=== PATIENT | male | born 1995 | race Caucasian/White ===

== ENCOUNTER 2017-06-07 21:19 | Emergency (ER) | payer BC ==
[2017-06-07 21:22] VITALS: TEMP 36.7
[2017-06-07] MEDS ORDERED: AMOX875T PO (22:15)
[2017-06-07] MEDS ORDERED: HYDR-5688 PO (22:15)
[2017-06-07] MEDS ORDERED: NORCO 5/325MG HOME PACK PO ONE (22:15)
[2017-06-07] MEDS ORDERED: AMOXICIL/CLAVU 875MG HOME PACK PO ONE (22:15)
[2017-06-07 22:25] VITALS: BP 133/70; PULSE 91; O2SAT 95
--- NOTE | 2017-06-07 22:30 | EMERGENCY ROOM VISIT NOTE ---
History First contact with patient: 21:43 Chief Complaint: LACERATION/CUT (SUT/DERMABOND) Stated Complaint: CHIPPED FRONT TEETH AND TONGUE LACERATION Nursing Triage Summary: Patient was playing soccer, "took a head to the face". Patient denies LOC. Patient has two front teeth chipped. History of Present Illness The patient is a 22 year old male who presents to the Emergency Room with complaints of injury to his upper teeth and tongue that occurred about 45 minutes ago. The patient states that he was playing soccer today when he collided with another participant. The patient broke 2 of his teeth and suffered a laceration to his tongue. The patient did not lose consciousness and does not have other complaints. He is usually healthy and does not take blood thinners. He is not complaining of significant head or neck pain. He does not take blood thinners. He is reportedly up-to-date on his tetanus and rates his current discomfort a 7/10. Review of Systems More than 10 systems were reviewed and otherwise negative with the exception of history of present illness. Past Medical/Surgical History No chronic medical disease Family History No pertinent family history Social History Smoking Status: Never Smoker Occupation Status: [employer] student Current/Historical Medications Scheduled Amoxicillin & Pot Clavulanate (Augmentin 875-125 mg), 1 TAB PO BID Scheduled PRN Hydrocodone/Acetaminophen 5MG/325MG ([place] 5MG/325MG), 1 TABLET PO Q6 PRN for Pain Physical Exam Vital Signs Date Time Temp Pulse Resp B/P (MAP) Pulse Ox O2 Delivery O2 Flow Rate FiO2 4/4/18 21:22 36.7 97 18 136/80 96 Room Air Physical Exam VITALS: Vitals are noted on the nurse's note and reviewed by myself. Vital signs stable. GENERAL: Well-developed, well-nourished, white male, who is moderately uncomfortable on examination EARS: External ear normal. External auditory canals clear, tympanic membranes pearly ramey without erythema or effusion bilaterally. EYES: Pupils equal round and reactive to light and accommodation. Conjunctivae without injection, sclerae without icterus. Extraocular movements intact. NOSE: Patent, turbinates without inflammation or discharge. MOUTH: Mucous membranes moist. Tonsils are not enlarged. Pharynx without erythema, blood, or exudate. Uvula midline. Airway patent. The front upper incisors, #8 and #9 teeth are with horizontal fractures inferiorly. These teeth are not subluxed and appear stable. No obvious pulp exposure. There is a 2 cm C-shaped laceration to the distal left lateral aspect of the tongue that does gape. There is an additional 1 cm fairly linear laceration to the underside of the tongue. NECK: Supple without nuchal rigidity. No lymphadenopathy. No thyromegaly. Cervical spine is nontender. HEART: Regular rate and rhythm without murmurs gallops or rubs. LUNGS: Clear to auscultation bilaterally without wheezes, rales or rhonchi. No retractions or accessory muscle use. Medical Decision & Procedures Procedure Laceration repair. Patient elects to have their laceration repaired. Verbal consent was obtained to perform the procedure. There is an abundance of materials available for the procedure. Patient is not allergic to latex. Using sterile technique the wound was cleaned with Betadine. The area was sterilely draped. The wound was cleansed and irrigated. The wound was explored and there were no deep structures injured such as tendons, bone, or significant blood vessels. The tongue laceration was repaired using 1 simple interrupted 6- 0 vicryl suture with the wound edges being well approximated. Patient tolerated the procedure well without complications. Blood loss was negligible. ED Course Physical exam and history were performed. Nursing notes, EMR, and Medication List were personally reviewed. Patient appears to have suffered injury to his face while playing soccer tonight. He has 2 fractures of his upper incisors, as well as a tongue laceration. On examination the tongue laceration does not neatly fall into place due to the size. Because of this I did elect to place a single 6-0 Vicryl suture to tack the wound into a more anatomic position. The patient tolerated this well. I did speak with the patient's father regarding the injury , who is evidently a physician in the [place] area. The patient and family understand that we do not have maxillofacial surgery on [facility], and the patient will require their services regarding his dental injuries. We will provide him with information locally, however there is a chance he may go back home to [facility] for further care. This seems reasonable. I will give the patient a short course of Augmentin and Vicodin. He was otherwise invited back to the ER with any new, worsening, or concerning symptoms. The chart was completed utilizing Dragon Speech Voice Recognition Software. Grammatical errors, random word insertions, pronoun errors, and incomplete sentences are an occasional consequence of this system due to software limitations, ambient noise, and hardware issues. Any formal questions or concerns about the content, text, or information contained within the body of this dictation should be directly addressed to the provider for clarification. . Medical Decision Differential diagnosis includes, but is not limited to: Laceration, abrasion, foreign body, fracture, and others Impression Primary Impression: Broken teeth Additional Impression: Laceration of tongue Departure Information Dispostion Home / Self-Care Condition GOOD Prescriptions Amoxicillin & Pot Clavulanate (Augmentin 875-125 mg) 1 Tab Tab 1 TAB PO BID for 4 Days, #8 TAB Prov: Geoffrey Barone PA-C 06/07/17 Hydrocodone/Acetaminophen 5MG/325MG ([place] 5MG/325MG) Tab 1 TABLET PO Q6 Y for Pain, #12 TAB For Initial Treatment Prov: Geoffrey Barone PA-C 06/07/17 Referrals Salvador Gonzalez D.D.S. No Doctor, [facility] (PCP) Forms HOME CARE DOCUMENTATION FORM, IMPORTANT VISIT INFORMATION Patient Instructions [facility] Additional Instructions You were seen and evaluated today on an emergency basis only. This is not a substitute for, or an effort to provide, complete comprehensive medical care. It is not possible to recognize and treat all injuries or illnesses in a single emergency department visit. For this reason it is recommended that you followup with Oral maxillofacial surgery, Dr. Gonzalez's office, by telephone in the morning to arrange appropriate follow-up regarding your teeth. Amoxicillin Clavulanate (Augmentin) 875mg: Take one pill twice daily for 5 days to prevent infection. All antibiotics can cause diarrhea. If this occurs and you feel worse or it does not resolve in 1-2 days follow up with your doctor or return to the Emergency Department as this could be signs of serious underlying problems. Any medication can cause an allergic reaction, stop the pills immediately and return to the ER for rash, hives, breathing difficulties, or swelling. You are welcome to return to the emergency department anytime with new, worsening, or concerning symptoms. Problem Qualifiers Primary Impression: Broken teeth Encounter type: initial encounter Fracture type: closed Qualified Codes: S02.5XXA - Fracture of tooth (traumatic), initial encounter for closed fracture Additional Impression: Laceration of tongue Encounter type: initial encounter Qualified Codes: S01.512A - Laceration without foreign body of oral cavity, initial encounter
== END 2017-06-07 22:25 | disposition home or self-care (01) ==
LOC: C.EDB 21:20 → C.EDD 22:25
DX: S02.5XXA Fracture of tooth (traumatic), initial encounter for closed fracture (principal); S01.512A Laceration without foreign body of oral cavity, initial encounter; W50.0XXA Accidental hit or strike by another person, initial encounter